=== PATIENT | male | born 1975 | race Caucasian/White ===

== ENCOUNTER 2019-10-19 07:11 | Emergency (ER) | payer OTHER ==
[~2019-10-19] VITALS: Ht 182.9 cm; Wt 85.5 kg
[2019-10-19 07:16] VITALS: Ht 182.9 cm; Wt 85.5 kg
[2019-10-19 07:33] LABS: BASOPHILS 0.3 % (0-2); EOSINOPHILS 3.3 % (0-7); HEMATOCRIT 45.5 % (42.0-54.0); HEMOGLOBIN 15.5 g/dL (13.5-17.5); MCH 29.2 pg (26.0-34.0); MCHC 34.1 g/dL (31.0-37.0); MCV 85.8 fL (80.0-100.0); MEAN PLATELET VOLUME 8.5 fL (7.4-10.4); MONOCYTES 10.3 % (2-11); NEUTROPHILS 49.1 % (40-80); PLATELET COUNT 227 10x3/uL (130-400); RDW 12.8 % (11.5-14.5); WBC 7.7 10x3/uL (4.8-10.8)
[2019-10-19 07:35] LABS: BILIRUBIN NEGATIVE (NEGATIVE); GLUCOSE NEGATIVE (NEGATIVE); KETONE SMALL mg/dL (NEGATIVE); NITRITE NEGATIVE (NEGATIVE); UROBILINOGEN NORMAL (NORMAL)
[2019-10-19 07:37] LABS: WHITE CELLS - URINE 0-5 /hpf (NEGATIVE)
[2019-10-19 07:39] LABS: BACTERIA FEW /hpf (NEGATIVE); EPITHELIAL CELLS NSEEN /hpf (0-5)
[2019-10-19 07:50] LABS: ANION GAP 11.6 mmol/L (8-16); CALCIUM 8.9 mg/dL (8.5-10.1); CARBON DIOXIDE 26.8 mmol/L (21.0-32.0); CREATININE - SERUM 1.2 mg/dL (0.6-1.3); POTASSIUM - SERUM 3.4 mmol/L (3.5-5.1)
[2019-10-19 07:55] LABS: ALBUMIN 4.2 g/dL (3.4-5.0); BILIRUBIN - TOTAL 0.91 mg/dL (0.2-1.3); PROTEIN - SERUM 7.7 g/dL (6.4-8.2)
[2019-10-19] MEDS ORDERED: FLOMAX0.4 MG PO (08:15)
[2019-10-19] MEDS ORDERED: HYDROCODON-ACE1 EAC7 PO (08:15)
[2019-10-19 08:16] VITALS: BP 121/77
== END 2019-10-19 08:31 | disposition home or self-care (01) ==
LOC: D.ER 07:11
PROVIDERS: Family Medicine
DX: N20.1 Calculus of ureter (principal); R10.9 Unspecified abdominal pain

== ENCOUNTER 2019-10-22 00:48 | Emergency (ER) | payer OTHER ==
[~2019-10-22] VITALS: Ht 182.9 cm; Wt 85.5 kg
[~2019-10-22 00:48] MED LIST: FLOMAX0.4 MG PO; HYDROCODON-ACE1 EAC7 PO
[2019-10-22 00:54] VITALS: Ht 182.9 cm; Wt 85.5 kg
[2019-10-22 01:21] LABS: BILIRUBIN NEGATIVE (NEGATIVE); GLUCOSE NEGATIVE (NEGATIVE); KETONE NEGATIVE (NEGATIVE); NITRITE NEGATIVE (NEGATIVE); SPECIFIC GRAVITY 1.025 (1.005-1.020); UROBILINOGEN NORMAL (NORMAL)
[2019-10-22 01:23] LABS: ANION GAP 14.6 mmol/L (8-16); BASOPHILS 0.2 % (0-2); CALCIUM 8.7 mg/dL (8.5-10.1); CARBON DIOXIDE 24.1 mmol/L (21.0-32.0); CREATININE - SERUM 1.7 mg/dL (0.6-1.3); EOSINOPHILS 0.7 % (0-7); HEMATOCRIT 40.8 % (42.0-54.0); HEMOGLOBIN 13.9 g/dL (13.5-17.5); IMMATURE GRANULOCYTES 0.1 % (0-5); LYMPHOCYTES 13.4 % (15-50); MCH 28.9 pg (26.0-34.0); MCHC 34.1 g/dL (31.0-37.0); MCV 84.8 fL (80.0-100.0); MEAN PLATELET VOLUME 8.6 fL (7.4-10.4); MONOCYTES 10.1 % (2-11); NEUTROPHILS 75.5 % (40-80); PLATELET COUNT 196 10x3/uL (130-400); POTASSIUM - SERUM 3.7 mmol/L (3.5-5.1); RBC 4.81 10x6/uL (4.20-6.10); RDW 12.6 % (11.5-14.5); WBC 11.1 10x3/uL (4.8-10.8)
[2019-10-22 01:23] LABS: BACTERIA FEW /hpf (NEGATIVE); EPITHELIAL CELLS 0-5 /hpf (0-5); RED CELLS - URINE 0-5 /hpf (0-5); WHITE CELLS - URINE 0-5 /hpf (NEGATIVE)
[2019-10-22 01:29] LABS: ALBUMIN 3.6 g/dL (3.4-5.0); BILIRUBIN - TOTAL 0.95 mg/dL (0.2-1.3); PROTEIN - SERUM 7.4 g/dL (6.4-8.2)
[2019-10-22] MEDS ORDERED: PERCOCET 10-321 EAC1 PO (02:14)
[2019-10-22 02:46] VITALS: BP 123/81
== END 2019-10-22 02:46 | disposition home or self-care (01) ==
LOC: D.ER 00:48
PROVIDERS: Emergency Medicine
DX: N28.9 Disorder of kidney and ureter, unspecified (principal); N20.1 Calculus of ureter